=== PATIENT | female | born 1985 | race Caucasian/White ===

== ENCOUNTER 2017-04-06 09:08 | Inpatient (IN) | payer OTHER ==
[~2017-04-06] VITALS: Ht 172.7 cm; Wt 89.0 kg
[2017-04-06] MEDS ORDERED: PREN1TAB60 PO (09:12)
[2017-04-06] MEDS ORDERED: CALC200T3 PO (09:12)
[2017-04-06 09:14] VITALS: BP 119/76
[2017-04-06] MEDS ORDERED: MEPERIDINE/PF 100 MG/ML IM PRN (11:00)
[2017-04-06] MEDS ORDERED: PROMETHAZINE 25 MG/ML, 1ML IM ONE (11:00)
[2017-04-06] MEDS ORDERED: MEPERIDINE/PF 100 MG/ML ONE (11:00)
[2017-04-06] MEDS ORDERED: PROMETHAZINE 25 MG/ML, 1ML ONE (11:01)
[2017-04-06] MEDS ORDERED: FENTANYL PF 100 MCG/2ML IVPush PRN (12:30)
[2017-04-06] MEDS ORDERED: ONDANSETRON 2MG/ML, 2ML IVPush PRN (12:30)
[2017-04-06] MEDS ORDERED: LACTATED RINGERS 1,000 ML IVBOLUS ONE (12:30)
[2017-04-06] MEDS: LACTATED RINGERS 1,000 ML IV SCH ×2 (12:36→15:15)
[2017-04-06] MEDS ORDERED: FENTANYL PF 100 MCG/2ML ONE ×2 (12:37→14:27)
[2017-04-06] MEDS ORDERED: ONDANSETRON 2MG/ML, 2ML ONE (12:37)
[2017-04-06 12:39] LABS: HEMATOCRIT 37.7 % (34.6-47.8); HEMOGLOBIN 12.5 g/dL (11.7-16.4); WHITE BLOOD COUNT 12.5 x10^3/uL (3.4-10)
[2017-04-06] MEDS ORDERED: LIDOCAINE 1%, 20ML ONE (13:10)
[2017-04-06] MEDS ORDERED: MISOPROSTOL 200 MCG TABLET ONE (13:10)
[2017-04-06] MEDS ORDERED: NEWBORN KIT ONE (13:11)
[2017-04-06] MEDS ORDERED: OXYTOCIN 30U/ 0.9% NaCL 500ML 500 ML ONE ×2 (13:11→21:52)
[2017-04-06] MEDS ORDERED: OXYTOCIN 30U/ 0.9% NaCL 500ML 500 ML IV ONE (13:17)
[2017-04-06] MEDS ORDERED: OXYTOCIN 30U/ 0.9% NaCL 500ML 500 ML IV PRN (13:17)
[2017-04-06] MEDS ORDERED: D5%-LACTATED RINGERS 1,000 ML IV SCH (13:17)
[2017-04-06] MEDS ORDERED: FENTANYL PF 100 MCG/2ML IV PRN (13:30)
[2017-04-06] MEDS ORDERED: FENTANYL/BUPIV./NS/PF 250 ML EPIDCONT ONE (14:27)
[2017-04-06] MEDS ORDERED: BUPIVACAINE 0.25% ONE (14:27)
[2017-04-06] MEDS ORDERED: OXYTOCIN 30U/ 0.9% NaCL 500ML 500 ML IV SCH (21:13)
[2017-04-06] MEDS ORDERED: OXYcodone/APAP 5/325MG TABLET ONE ×2 (21:27)
[2017-04-06] MEDS ORDERED: IBUPROFEN 600 MG TABLET ONE (21:27)
[2017-04-06] MEDS: IBUPROFEN 600 MG TABLET PO PRN (21:29)
[2017-04-06] MEDS: OXYcodone/APAP 5/325MG TABLET PO PRN (21:30)
[2017-04-06] MEDS ORDERED: MISOPROSTOL 200 MCG TABLET SL PRN (21:30)
[2017-04-06] MEDS ORDERED: ACETAMINOPHEN 325 MG TABLET PO PRN (21:30)
[2017-04-06] MEDS ORDERED: ONDANSETRON 2MG/ML, 2ML IV PRN (21:30)
[2017-04-06 23:20] VITALS: BP 114/75
[2017-04-07 00:35] VITALS: BP 115/72
[2017-04-07] MEDS: IBUPROFEN 600 MG TABLET PO PRN ×4 (03:25→22:53)
[2017-04-07] MEDS: OXYcodone/APAP 5/325MG TABLET PO PRN ×5 (03:25→20:02)
[2017-04-07 05:56] LABS: HEMATOCRIT 32.7 % (34.6-47.8); HEMOGLOBIN 10.6 g/dL (11.7-16.4); WHITE BLOOD COUNT 16.5 x10^3/uL (3.4-10)
[2017-04-07 08:00] VITALS: BP 109/68
[2017-04-07] MEDS: DOCUSATE 100 MG CAPSULE PO PRN ×2 (08:00→20:02)
[2017-04-07] MEDS: PRENATAL VIT/IRON/FA 1 EACH TABLET PO SCH (09:00)
[2017-04-07 15:56] VITALS: BP 110/66
[2017-04-07 19:50] VITALS: BP 124/77
[2017-04-08 08:50] VITALS: BP 107/70
[2017-04-08] MEDS: IBUPROFEN 600 MG TABLET PO PRN ×2 (08:51→16:03)
[2017-04-08] MEDS: PRENATAL VIT/IRON/FA 1 EACH TABLET PO SCH (08:52)
[2017-04-08] MEDS: DOCUSATE 100 MG CAPSULE PO PRN ×2 (08:52→20:48)
[2017-04-08] MEDS: OXYcodone/APAP 5/325MG TABLET PO PRN ×4 (08:52→17:25)
[2017-04-08] MEDS ORDERED: OXYC-302 PO (10:07)
[2017-04-08] MEDS ORDERED: IBUP200T48 PO (10:08)
== END 2017-04-08 21:15 | disposition home or self-care (01) | DRG 774 ==
LOC: LDOP 09:08 → LDIP 10:30 → INTOOBSV 10:30 → UNDOADMOB 10:30 → OBSVTOIN 10:30 → LDIP 13:17 → OBSVTOIN 13:17 → 2NW 23:00
PROVIDERS: ADMIT Obstetrics & Gynecology; ATTEND Obstetrics & Gynecology
PROC: 10E0XZZ Delivery of Products of Conception, External Approach (ICD-10-PCS; principal; 2017-04-06)
PROC: 0KQM0ZZ Repair Perineum Muscle, Open Approach (ICD-10-PCS; 2017-04-06)
PROC: 0W8NXZZ Division of Female Perineum, External Approach (ICD-10-PCS; 2017-04-06)
PROC: 10907ZC Drainage of Amniotic Fluid, Therapeutic from Products of Conception, Via Natural or Artificial Opening (ICD-10-PCS; 2017-04-06)
PROC: 4A1H74Z Monitoring of Products of Conception, Cardiac Electrical Activity, Via Natural or Artificial Opening (ICD-10-PCS; 2017-04-06)
PROC: 3E0S3CZ (ICD-10-PCS; 2017-04-06)
PROC: 00HU33Z Insertion of Infusion Device into Spinal Canal, Percutaneous Approach (ICD-10-PCS; 2017-04-06)
DX: O77.0 Labor and delivery complicated by meconium in amniotic fluid (principal); O90.89 Other complications of the puerperium, not elsewhere classified; R33.9 Retention of urine, unspecified; O69.81X0 Labor and delivery complicated by cord around neck, without compression, not applicable or unspecified; Z3A.40 40 weeks gestation of pregnancy; Z37.0 Single live birth
CPT/HCPCS: 36415; 81001; 85025; 86850; 86900; J2405; J2550; J3010; J3490; J2175; J2590; J7120; J7121